=== PATIENT | male | born 1995 | race Caucasian/White ===

== ENCOUNTER 2023-05-22 20:37 | Emergency (ER) | payer OTHER ==
[2023-05-22 21:00] VITALS: BP 123/74; PULSE 74; RESP 16; TEMP 98.3; BMI 29.0
[2023-05-22] MEDS ORDERED: ACETAMINOPHEN 500 MG TABLET (FP) PO ONE (22:08)
[2023-05-22] MEDS ORDERED: ACETAMINOPHEN 500 MG TABLET (FP) ONE (22:09)
== END 2023-05-22 22:21 | disposition home or self-care (01) ==
LOC: FER 20:37
DX: S80.811A Abrasion, right lower leg, initial encounter (principal); S40.811A Abrasion of right upper arm, initial encounter; M25.511 Pain in right shoulder; V18.0XXA Pedal cycle driver injured in noncollision transport accident in nontraffic accident, initial encounter; Y92.410 Unspecified street and highway as the place of occurrence of the external cause
CPT/HCPCS: 73030-TC-RT-FY; 99283-25